=== PATIENT | female | born 1995 | race American Indian/Alaskan Native ===

== ENCOUNTER 2019-11-09 09:27 | Emergency (ER) | payer SELFPAY ==
[2019-11-09 09:42] VITALS: BP 132/92
[2019-11-09] MEDS ORDERED: diphenhydrAMINE 25 MG CAP PO ONE (09:44)
[2019-11-09] MEDS ORDERED: IPRATROPIUM/ALBUTEROL SULFATE 3 ML AMPUL.NEB IH ONE (09:44)
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
[2019-11-09] MEDS ORDERED: hydrOXYzine PAMOATE 25 MG CAP PO ONE (09:45)
--- NOTE | 2019-11-09 10:18 | XRay Report ---
CHEST 2 VIEWS INDICATION / CLINICAL INFORMATION: SOB. COMPARISON: None available. FINDINGS: SUPPORT DEVICES: None. HEART / MEDIASTINUM: No significant abnormality. LUNGS / PLEURA: No significant pulmonary or pleural abnormality. No pneumothorax. ADDITIONAL FINDINGS: No significant additional findings. IMPRESSION: No significant abnormality Signer Name: Phillip Bryant MD FACR Signed: 11/09/2019 10:14 AM Workstation Name: [email or web address]
[2019-11-09 11:17] LABS: Hematocrit 39.8 % (30.3-42.9); Hemoglobin 13.7 gm/dl (10.1-14.3); Mean Corpuscular HGB Conc 35 % (30-34); Mean Corpuscular Volume 93 fl (79-97); Platelet Count 241 K/mm3 (140-440); Red Blood Count 4.28 M/mm3 (3.65-5.03); Red Cell Distribution Width 13.3 % (13.2-15.2)
[2019-11-09 11:42] LABS: Alanine Aminotransferase 12 units/L (7-56); Albumin 4.7 g/dL (3.9-5); BUN/Creatinine Ratio 22; Blood Urea Nitrogen 11 mg/dL (7-17); Calcium 9.7 mg/dL (8.4-10.2); Hemolysis Index 7
[2019-11-09 11:43] LABS: C-Reactive Protein 0.3 mg/dL (0.00-1.30)
[2019-11-09 12:08] LABS: Band Neutrophils # (Manual) 0.7 K/mm3; Basophils % (Manual) 0 % (0.0-1.8); Eosinophils % (Manual) 0 % (0.0-4.3); Platelet Estimate Consistent w Auto; RBC Morphology Normal; Total Cells Counted 100
[2019-11-09] MEDS ORDERED: AZITHROMYCIN 500 MG in SODIUM CHLORIDE 0.9% 250ML 250 ML IV ONE (13:00)
[2019-11-09 13:08] LABS: Bacteria,Urine 2+ /HPF (Negative); Bilirubin,Urine NEG (Negative); Blood,Urine NEG (Negative); Color,Urine Straw (Yellow); Protein,Urine <15 mg/dL mg/dL (Negative); Urobilinogen,Urine < 2.0 mg/dL (<2.0)
[2019-11-09 13:27] LABS: HCG Qualitative,Urine Negative (Negative)
[2019-11-09] MEDS ORDERED: ONDANSETRON 4 MG ODT TAB PO ONE (14:11)
== END 2019-11-09 15:16 | disposition home or self-care (01) ==
LOC: ED 09:27
DX: J06.9 Acute upper respiratory infection, unspecified (principal); Z20.828 Contact with and (suspected) exposure to other viral communicable diseases; Z79.899 Other long term (current) drug therapy
CPT/HCPCS: 36415; 71046; 80053; 81001; 81025; 82728; 83615; 84145; 85007; 85025; 85379; 86140; 94640; 96365; 99284; J0456; J7050; Q0162; Q0177

== ENCOUNTER 2020-01-26 10:01 | Emergency (ER) | payer SELFPAY ==
[2020-01-26 10:54] VITALS: BP 135/91
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
== END 2020-01-26 13:44 | disposition home or self-care (01) ==
LOC: ED 10:01
DX: R52 Pain, unspecified (principal); F17.200 Nicotine dependence, unspecified, uncomplicated; Z79.899 Other long term (current) drug therapy; Y08.89XA Assault by other specified means, initial encounter; Y93.89 Activity, other specified; Y92.009 Unspecified place in unspecified non-institutional (private) residence as the place of occurrence of the external cause; Y99.8 Other external cause status
CPT/HCPCS: 70360; 72040